=== PATIENT | male | born 1940 | race Caucasian/White ===

== ENCOUNTER → 2016-08-25 | Outpatient (REF) | payer MEDICARE, OTHER ==
[2016-08-25 12:13] LABS: ALBUMIN 3.3 GM/DL (3.2-5.2); ALBUMIN/GLOBULIN RATIO 0.87 (1.00-1.93); ALKALINE PHOSPHATASE 73 U/L (45-117); ALT/SGPT 42 U/L (12-78); ANION GAP 5 MEQ/L (8-16); AST/SGOT 40 U/L (15-37); BILIRUBIN,TOTAL 0.9 MG/DL (0.2-1.0); BLOOD UREA NITROGEN 17 MG/DL (7-18); CALCIUM LEVEL 8.7 MG/DL (8.8-10.2); CARBON DIOXIDE LEVEL 31 MEQ/L (21-32); CHLORIDE LEVEL 108 MEQ/L (98-107); CHOLESTEROL LEVEL 169 MG/DL (<200); CREATININE FOR GFR 0.77 MG/DL (0.70-1.30); GLOMERULAR FILTRATION RATE > 60.0 (>42); GLUCOSE, FASTING 93 MG/DL (83-110); POTASSIUM SERUM 4.6 MEQ/L (3.5-5.1); SODIUM LEVEL 144 MEQ/L (136-145); TOTAL PROTEIN 7.1 GM/DL (6.4-8.2); TRIGLYCERIDES LEVEL 54 MG/DL (<150)
== END ==
LOC: M SFHCCLAY 08:32
PROVIDERS: ATTEND Family Medicine
DX: E78.00 Pure hypercholesterolemia, unspecified (principal); R03.0 Elevated blood-pressure reading, without diagnosis of hypertension; Z85.46 Personal history of malignant neoplasm of prostate

== ENCOUNTER → 2016-09-05 | Outpatient (REF) | payer MEDICARE, OTHER ==
[2016-09-05 17:41] LABS: ALBUMIN 3.2 GM/DL (3.2-5.2); ALBUMIN/GLOBULIN RATIO 0.89 (1.00-1.93); ALKALINE PHOSPHATASE 75 U/L (45-117); ALT/SGPT 70 U/L (12-78); AST/SGOT 55 U/L (15-37); BILIRUBIN,DIRECT 0.2 MG/DL (0.0-0.2); BILIRUBIN,TOTAL 0.6 MG/DL (0.2-1.0); TOTAL PROTEIN 6.8 GM/DL (6.4-8.2)
[2016-09-09 13:39] LABS: ALBUMIN 3.74 GM/DL (3.29-5.55); GAMMA GLOBULIN % 21.5 % (11.1-18.8)
== END ==
LOC: M SFHCCLAY 11:13
PROVIDERS: ATTEND Family Medicine
DX: R79.89 Other specified abnormal findings of blood chemistry (principal); E83.51 Hypocalcemia

== ENCOUNTER → 2016-09-17 | Outpatient (REF) | payer MEDICARE, OTHER | LOC: M SFHCCLAY 09:00 | PROVIDERS: ATTEND Family Medicine | DX: R79.89 Other specified abnormal findings of blood chemistry (principal) ==

== ENCOUNTER → 2016-10-02 | Outpatient (REF) | payer MEDICARE, OTHER ==
[2016-10-02 12:13] LABS: ALBUMIN 3.4 GM/DL (3.2-5.2); ALBUMIN/GLOBULIN RATIO 0.89 (1.00-1.93); BILIRUBIN,DIRECT 0.2 MG/DL (0.0-0.2); BILIRUBIN,TOTAL 0.6 MG/DL (0.2-1.0); TOTAL PROTEIN 7.2 GM/DL (6.4-8.2)
== END ==
LOC: M SFHCCLAY 09:03
PROVIDERS: ATTEND Family Medicine
DX: R79.89 Other specified abnormal findings of blood chemistry (principal); E78.00 Pure hypercholesterolemia, unspecified

== ENCOUNTER → 2016-12-08 | Outpatient (CLI) | payer MEDICARE, OTHER ==
[2016-12-08 08:50] LABS: ANION GAP 9 MEQ/L (8-16); BLOOD UREA NITROGEN 22 MG/DL (7-18); CALCIUM LEVEL 8.9 MG/DL (8.8-10.2); CARBON DIOXIDE LEVEL 30 MEQ/L (21-32); CHLORIDE LEVEL 103 MEQ/L (98-107); CREATININE FOR GFR 0.86 MG/DL (0.70-1.30); GLOMERULAR FILTRATION RATE > 60.0 (>42); GLUCOSE, FASTING 97 MG/DL (83-110); POTASSIUM SERUM 4.4 MEQ/L (3.5-5.1); SODIUM LEVEL 142 MEQ/L (136-145)
--- NOTE | 2016-12-08 09:08 | REP ---
Clinical: Preoperative assessment . Comparison: 08/25/2014 . Technique: PA and lateral. Findings: The mediastinum and cardiac silhouette are normal. The lung tobar demonstrate chronic stable changes without acute consolidation, effusion, or pneumothorax. Airway is patent and midline. The skeletal structures are intact and normal. Impression: 1. No acute cardiopulmonary process. Signed by Diego Torrez MD 12/08/2016 08:16 A
--- NOTE | 2016-12-08 13:46 | ECGEPIP ---
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 Clinical correlation advised; rule out acute myocardial ischemia. Electronically Signed On 12-08-2016 13:46:28 EDT by Tobias Martinez
== END ==
LOC: M LAB 07:17
PROVIDERS: ATTEND Ophthalmology
DX: H25.13 Age-related nuclear cataract, bilateral (principal)

== ENCOUNTER → 2017-08-19 | Outpatient (REF) | payer MEDICARE, OTHER ==
[2017-08-19 12:15] LABS: ALBUMIN 3.5 GM/DL (3.2-5.2); ALBUMIN/GLOBULIN RATIO 0.92 (1.00-1.93); ALKALINE PHOSPHATASE 67 U/L (45-117); ALT/SGPT 30 U/L (12-78); ANION GAP 6 MEQ/L (8-16); AST/SGOT 25 U/L (7-37); BILIRUBIN,TOTAL 0.9 MG/DL (0.2-1.0); BLOOD UREA NITROGEN 16 MG/DL (7-18); CALCIUM LEVEL 9.2 MG/DL (8.8-10.2); CARBON DIOXIDE LEVEL 30 MEQ/L (21-32); CHLORIDE LEVEL 105 MEQ/L (98-107); CHOLESTEROL LEVEL 185 MG/DL (<200); CHOLESTEROL RISK RATIO 3.775 (<5); CREATININE FOR GFR 0.87 MG/DL (0.70-1.30); GLOMERULAR FILTRATION RATE > 60.0 (>42); GLUCOSE, FASTING 88 MG/DL (70-100); HDL CHOLESTEROL 49 MG/DL (>40); LDL CHOLESTEROL 120.2 MG/DL (<100); NON-HDL-C 136 MG/DL; POTASSIUM SERUM 4.2 MEQ/L (3.5-5.1); SODIUM LEVEL 141 MEQ/L (136-145); TOTAL PROTEIN 7.3 GM/DL (6.4-8.2); TRIGLYCERIDES LEVEL 79 MG/DL (<150)
== END ==
LOC: M SFHCCLAY 07:47
DX: E78.00 Pure hypercholesterolemia, unspecified (principal); I10 Essential (primary) hypertension
CPT/HCPCS: 80053

== ENCOUNTER → 2018-08-17 | Outpatient (REF) | payer MEDICARE, OTHER ==
[2018-08-17 16:51] LABS: ALBUMIN 3.5 GM/DL (3.2-5.2); ALT/SGPT 34 U/L (12-78); BILIRUBIN,TOTAL 0.7 MG/DL (0.2-1.0); BLOOD UREA NITROGEN 20 MG/DL (7-18); CARBON DIOXIDE LEVEL 29 MEQ/L (21-32); CHLORIDE LEVEL 107 MEQ/L (98-107); CHOLESTEROL LEVEL 212 MG/DL (<200); CHOLESTEROL RISK RATIO 4.416 (<5); CREATININE FOR GFR 0.88 MG/DL (0.70-1.30); GLOMERULAR FILTRATION RATE > 60.0 (>42); GLUCOSE, FASTING 96 MG/DL (70-100); HDL CHOLESTEROL 48 MG/DL (>40); LDL CHOLESTEROL 147 MG/DL (<100); NON-HDL-C 164 MG/DL; PROSTATIC SPECIFIC AG MONITOR < 0.01 NG/ML (< 4.00); SODIUM LEVEL 141 MEQ/L (136-145); TOTAL PROTEIN 7.3 GM/DL (6.4-8.2); TRIGLYCERIDES LEVEL 85 MG/DL (<150)
[2018-08-17 18:21] LABS: HEMATOCRIT 44.1 % (42.0-52.0); HEMOGLOBIN 15.1 g/dl (13.5-17.5); MEAN CORPUSCULAR HEMOGLOBIN 30.9 pg (27.0-33.0); MEAN CORPUSCULAR HGB CONC 34.2 g/dl (32.0-36.5); MEAN CORPUSCULAR VOLUME 90.2 fl (80.0-96.0); PLATELET COUNT, AUTOMATED 223 10^3/uL (150-450); RED BLOOD COUNT 4.89 10^6/uL (4.30-6.10); WHITE BLOOD COUNT 7.5 10^3/uL (4.0-10.0)
== END ==
LOC: M SFHCCLAY 09:46
PROVIDERS: ATTEND Family Medicine
DX: J45.909 Unspecified asthma, uncomplicated (principal); I10 Essential (primary) hypertension; E78.00 Pure hypercholesterolemia, unspecified; Z85.46 Personal history of malignant neoplasm of prostate

== ENCOUNTER → 2018-09-10 | Outpatient (REF) | payer MEDICARE, OTHER ==
[2018-09-10 17:39] LABS: TOTAL PROTEIN 7.2 GM/DL (6.4-8.2)
[2018-09-10 17:43] LABS: HEMATOCRIT 44.9 % (42.0-52.0); MEAN CORPUSCULAR HGB CONC 33.4 g/dl (32.0-36.5); MEAN CORPUSCULAR VOLUME 92.8 fl (80.0-96.0); PLATELET COUNT, AUTOMATED 228 10^3/uL (150-450); RED BLOOD COUNT 4.84 10^6/uL (4.30-6.10); WHITE BLOOD COUNT 8.3 10^3/uL (4.0-10.0)
[2018-09-10 18:54] LABS: ERYTHROCYTE SEDIMENTATION RATE 5 mm/hr (0-20)
[2018-09-14 12:41] LABS: ALBUMIN 4.08 GM/DL (3.29-5.55); ALBUMIN % 56.7 % (55.8-66.1); ALPHA-1-GLOBULIN % 3.7 % (2.9-4.9); ALPHA-1-GLOBULINS 0.27 GM/DL (0.17-0.41); ALPHA-2-GLOBULINS 0.61 GM/DL (0.42-0.99); ALPHA-2-GLOBULINS % 8.5 % (7.1-11.8); BETA-1-GLOBULINS 0.48 GM/DL (0.28-0.60); BETA-1-GLOBULINS % 6.7 % (4.7-7.2); BETA-2-GLOBULINS 0.42 GM/DL (0.19-0.55); BETA-2-GLOBULINS % 5.9 % (3.2-6.5); GAMMA GLOBULIN % 18.5 % (11.1-18.8); GAMMA GLOBULINS 1.33 GM/DL (0.65-1.58)
[2018-09-14 14:11] LABS: IMMUNOTYPING SERUM IGG ABNORMAL (NORMAL); IMMUNOTYPING SERUM KAPPA ABNORMAL (NORMAL); IMMUNOTYPING SERUM LAMBDA ABNORMAL (NORMAL)
== END ==
LOC: M SFHCCLAY 12:03
PROVIDERS: ATTEND Family Medicine
DX: D89.2 Hypergammaglobulinemia, unspecified (principal)

== ENCOUNTER → 2019-10-19 | Outpatient (REF) | payer MEDICARE, OTHER ==
[~2019-10-19] MED LIST: BIMA01SOL OS; FISH1000 PO; LUTE20TA PO; OMEP1CAP73 PO; VITA100066 PO
[2019-10-19 11:26] LABS: BASO # 0.1 10^3/uL (0.0-0.2); BASO % 0.6 % (0.0-1.0); EOS # 0.2 10^3/uL (0.0-0.5); EOS % 2.8 % (0.0-3.0); HEMATOCRIT 45.8 % (42.0-52.0); HEMOGLOBIN 15.6 g/dl (13.5-17.5); LYMPH # 3.1 10^3/uL (1.5-5.0); LYMPH % 40.4 % (24.0-44.0); MEAN CORPUSCULAR HEMOGLOBIN 31.7 pg (27.0-33.0); MEAN CORPUSCULAR HGB CONC 34.1 g/dl (32.0-36.5); MEAN CORPUSCULAR VOLUME 93.1 fl (80.0-96.0); MONO # 0.9 10^3/uL (0.0-0.8); NEUTROPHILS # 3.5 10^3/uL (1.5-8.5); NEUTROPHILS % 45.1 % (36.0-66.0); PLATELET COUNT, AUTOMATED 219 10^3/uL (150-450); RED BLOOD COUNT 4.92 10^6/uL (4.30-6.10); WHITE BLOOD COUNT 7.7 10^3/uL (4.0-10.0)
[2019-10-19 11:34] LABS: ALBUMIN 3.4 GM/DL (3.2-5.2); ALT/SGPT 25 U/L (12-78); BLOOD UREA NITROGEN 21 MG/DL (7-18); CALCIUM LEVEL 9.1 MG/DL (8.8-10.2); CARBON DIOXIDE LEVEL 31 MEQ/L (21-32); CHLORIDE LEVEL 107 MEQ/L (98-107); CHOLESTEROL LEVEL 188 MG/DL (<200); CHOLESTEROL RISK RATIO 4.372 (<5); GLOMERULAR FILTRATION RATE > 60.0 (>35); GLUCOSE, FASTING 96 MG/DL (70-100); HDL CHOLESTEROL 43 MG/DL (>40); LDH LACTATE DEHYDROGENASE 165 U/L (87-241); LDL CHOLESTEROL 123 MG/DL (<100); NON-HDL-C 145 MG/DL; POTASSIUM SERUM 4.9 MEQ/L (3.5-5.1); SODIUM LEVEL 141 MEQ/L (136-145); TOTAL PROTEIN 7.3 GM/DL (6.4-8.2); TRIGLYCERIDES LEVEL 109 MG/DL (<150)
[2019-10-20 07:53] LABS: ALBUMIN % 55.4 % (55.8-66.1); ALPHA-1-GLOBULIN % 3.7 % (2.9-4.9); ALPHA-2-GLOBULINS % 8.8 % (7.1-11.8); BETA-1-GLOBULINS % 6.7 % (4.7-7.2); BETA-2-GLOBULINS % 6.1 % (3.2-6.5); GAMMA GLOBULIN % 19.3 % (11.1-18.8)
[2019-10-20 07:54] LABS: ALBUMIN 4.04 GM/DL (3.29-5.55); ALPHA-1-GLOBULINS 0.27 GM/DL (0.17-0.41); ALPHA-2-GLOBULINS 0.64 GM/DL (0.42-0.99); BETA-1-GLOBULINS 0.49 GM/DL (0.28-0.60); BETA-2-GLOBULINS 0.45 GM/DL (0.19-0.55); GAMMA GLOBULINS 1.41 GM/DL (0.65-1.58)
== END ==
LOC: M SFHCCLAY 07:35
PROVIDERS: ATTEND Family Medicine
DX: J45.909 Unspecified asthma, uncomplicated (principal); K22.2 Esophageal obstruction; D47.2 Monoclonal gammopathy; I10 Essential (primary) hypertension

== ENCOUNTER → 2020-08-14 | Outpatient (CLI) | payer MEDICARE, OTHER ==
--- NOTE | 2020-08-14 15:21 | REP ---
INDICATION: COUGH. COMPARISON: Comparison chest x-ray December 08, 2016. TECHNIQUE: Two views.. FINDINGS: The lungs are hyperinflated and free of infiltrate. Pleural angles are sharp. There is mild linear fibrosis in the right base. Heart is not felt to be enlarged. The thoracic aorta is somewhat tortuous. No acute bony abnormality is seen. There are 2 metallic orthopedic anchors in the right humeral head again noted. IMPRESSION: No active disease. Mild hyperinflation.. <Electronically signed by Rogelio Bae > 08/14/20 [id number]
== END ==
LOC: M CLY 14:53
PROVIDERS: ATTEND Physician Assistant
DX: R06.02 Shortness of breath (principal); R05 Cough; Z20.822 Contact with and (suspected) exposure to COVID-19
CPT/HCPCS: 71046; G0463; U0003

== ENCOUNTER → 2020-08-14 | Outpatient (REF) | payer MEDICARE, OTHER | LOC: M SFHCCLAY 14:40 | PROVIDERS: ATTEND Physician Assistant | DX: R06.02 Shortness of breath (principal); Z11.52 Encounter for screening for COVID-19 ==

== ENCOUNTER → 2020-08-17 | Outpatient (REF) | payer MEDICARE, OTHER ==
[2020-08-17 16:00] LABS: BASO % 0.4 % (0.0-1.0); EOS # 0.1 10^3/uL (0.0-0.5); HEMATOCRIT 45.6 % (42.0-52.0); HEMOGLOBIN 15.2 g/dl (13.5-17.5); LYMPH # 1.6 10^3/uL (1.5-5.0); LYMPH % 23.2 % (24.0-44.0); MEAN CORPUSCULAR HEMOGLOBIN 30.9 pg (27.0-33.0); MEAN CORPUSCULAR HGB CONC 33.3 g/dl (32.0-36.5); MEAN CORPUSCULAR VOLUME 92.7 fl (80.0-96.0); MONO # 0.5 10^3/uL (0.0-0.8); MONO % 7.4 % (0.0-5.0); NEUTROPHILS # 4.6 10^3/uL (1.5-8.5); NEUTROPHILS % 67.7 % (36.0-66.0); PLATELET COUNT, AUTOMATED 189 10^3/uL (150-450); RED BLOOD COUNT 4.92 10^6/uL (4.30-6.10); WHITE BLOOD COUNT 6.8 10^3/uL (4.0-10.0)
[2020-08-17 16:27] LABS: ALBUMIN 3.6 GM/DL (3.2-5.2); ALT/SGPT 27 U/L (12-78); BILIRUBIN,TOTAL 0.7 MG/DL (0.2-1.0); BLOOD UREA NITROGEN 23 MG/DL (7-18); CALCIUM LEVEL 9.6 MG/DL (8.8-10.2); CARBON DIOXIDE LEVEL 29 MEQ/L (21-32); CHLORIDE LEVEL 106 MEQ/L (98-107); CHOLESTEROL LEVEL 209 MG/DL (<200); CREATININE FOR GFR 0.85 MG/DL (0.70-1.30); GLOMERULAR FILTRATION RATE > 60.0 (>35); GLUCOSE, FASTING 96 MG/DL (70-100); HDL CHOLESTEROL 50 MG/DL (>40); LDL CHOLESTEROL 143 MG/DL (<100); NON-HDL-C 159 MG/DL; POTASSIUM SERUM 4.8 MEQ/L (3.5-5.1); SODIUM LEVEL 141 MEQ/L (136-145); TOTAL PROTEIN 7.6 GM/DL (6.4-8.2); TRIGLYCERIDES LEVEL 81 MG/DL (<150)
[2020-08-17 16:29] LABS: ERYTHROCYTE SEDIMENTATION RATE 7 mm/hr (0-20)
[2020-08-22 12:15] LABS: ALBUMIN 4.14 GM/DL (3.29-5.55); ALBUMIN % 54.5 % (55.8-66.1); ALPHA-1-GLOBULIN % 3.9 % (2.9-4.9); ALPHA-2-GLOBULINS 0.69 GM/DL (0.42-0.99); ALPHA-2-GLOBULINS % 9.1 % (7.1-11.8); BETA-1-GLOBULINS 0.49 GM/DL (0.28-0.60); BETA-1-GLOBULINS % 6.5 % (4.7-7.2); BETA-2-GLOBULINS 0.46 GM/DL (0.19-0.55); BETA-2-GLOBULINS % 6.1 % (3.2-6.5); GAMMA GLOBULIN % 19.9 % (11.1-18.8); GAMMA GLOBULINS 1.51 GM/DL (0.65-1.58)
[2020-08-22 12:53] LABS: IMMUNOTYPING SERUM IGG ABNORMAL (NORMAL); IMMUNOTYPING SERUM KAPPA ABNORMAL (NORMAL)
== END ==
LOC: M SFHCCLAY 09:56
PROVIDERS: ATTEND Family Medicine
DX: D47.2 Monoclonal gammopathy (principal); I10 Essential (primary) hypertension; E78.00 Pure hypercholesterolemia, unspecified; J45.20 Mild intermittent asthma, uncomplicated

== ENCOUNTER → 2020-08-23 | Outpatient (REF) | payer MEDICARE, OTHER | LOC: M SFHCDERM 14:13 | PROVIDERS: ATTEND Dermatology | DX: L60.3 Nail dystrophy (principal) ==

== ENCOUNTER → 2020-08-23 | Outpatient (CLI) | payer MEDICARE, OTHER | LOC: M LAB 14:34 | PROVIDERS: ATTEND Dermatology | DX: L60.3 Nail dystrophy (principal); D18.01 Hemangioma of skin and subcutaneous tissue | CPT/HCPCS: 17000; 17003; 36415; 82728; G0463 ==

== ENCOUNTER → 2020-08-29 | Outpatient (REF) | payer MEDICARE, OTHER ==
[2020-08-29 16:27] LABS: PERCENT SATURATION 38.6 % (19.7-50.0)
[2020-08-31 19:06] LABS: FREE KAPPA LIGHT CHAINS SERUM 45.3 mg/L (3.3-19.4); FREE LAMBDA LIGHT CHAINS SERUM 18.2 mg/L (5.7-26.3); KAPPA/LAMBDA RATIO SERUM 2.49 (0.26-1.65)
== END ==
LOC: M SFHCCLAY 11:51
PROVIDERS: ATTEND Family Medicine
DX: L60.3 Nail dystrophy (principal); D50.9 Iron deficiency anemia, unspecified

== ENCOUNTER → 2020-10-16 | Outpatient (REF) | payer MEDICARE, OTHER | LOC: M LAB REF 18:48 | PROVIDERS: ATTEND Dermatology | DX: D23.39 Other benign neoplasm of skin of other parts of face (principal) ==

== ENCOUNTER → 2021-08-23 | Outpatient (REF) | payer MEDICARE, OTHER ==
[2021-08-23 15:56] LABS: BASO % 0.5 % (0.0-1.0); EOS # 0.1 10^3/uL (0.0-0.5); EOS % 0.7 % (0.0-3.0); HEMATOCRIT 44.8 % (42.0-52.0); HEMOGLOBIN 15.1 g/dl (13.5-17.5); LYMPH # 1.8 10^3/uL (1.5-5.0); LYMPH % 21.9 % (24.0-44.0); MEAN CORPUSCULAR HEMOGLOBIN 31.1 pg (27.0-33.0); MEAN CORPUSCULAR HGB CONC 33.7 g/dl (32.0-36.5); MEAN CORPUSCULAR VOLUME 92.2 fl (80.0-96.0); MONO # 0.6 10^3/uL (0.0-0.8); MONO % 7.5 % (2.0-8.0); NEUTROPHILS # 5.7 10^3/uL (1.5-8.5); NEUTROPHILS % 69.3 % (36.0-66.0); PLATELET COUNT, AUTOMATED 207 10^3/uL (150-450); RED BLOOD COUNT 4.86 10^6/uL (4.30-6.10); WHITE BLOOD COUNT 8.2 10^3/uL (4.0-10.0)
[2021-08-23 16:32] LABS: ALBUMIN 3.6 GM/DL (3.2-5.2); ALT/SGPT 28 U/L (12-78); BILIRUBIN,TOTAL 0.8 MG/DL (0.2-1.0); BLOOD UREA NITROGEN 20 MG/DL (7-18); CALCIUM LEVEL 9.1 MG/DL (8.8-10.2); CARBON DIOXIDE LEVEL 29 MEQ/L (21-32); CHLORIDE LEVEL 108 MEQ/L (98-107); CHOLESTEROL LEVEL 171 MG/DL (<200); CHOLESTEROL RISK RATIO 3.717 (<5); CREATININE FOR GFR 0.87 MG/DL (0.70-1.30); GLOMERULAR FILTRATION RATE > 60.0 (>35); GLUCOSE, FASTING 92 MG/DL (70-100); HDL CHOLESTEROL 46 MG/DL (>40); LDL CHOLESTEROL 106 MG/DL (<100); NON-HDL-C 125 MG/DL; POTASSIUM SERUM 4.6 MEQ/L (3.5-5.1); SODIUM LEVEL 140 MEQ/L (136-145); TOTAL PROTEIN 7.2 GM/DL (6.4-8.2); TRIGLYCERIDES LEVEL 96 MG/DL (<150)
[2021-08-27 10:55] LABS: ALBUMIN 3.97 GM/DL (3.29-5.55); ALBUMIN % 55.2 % (55.8-66.1); ALPHA-1-GLOBULIN % 4.1 % (2.9-4.9); ALPHA-2-GLOBULINS 0.66 GM/DL (0.42-0.99); ALPHA-2-GLOBULINS % 9.1 % (7.1-11.8)
[2021-08-27 10:56] LABS: BETA-1-GLOBULINS 0.46 GM/DL (0.28-0.60); BETA-1-GLOBULINS % 6.4 % (4.7-7.2); BETA-2-GLOBULINS 0.44 GM/DL (0.19-0.55); BETA-2-GLOBULINS % 6.1 % (3.2-6.5); GAMMA GLOBULIN % 19.1 % (11.1-18.8); GAMMA GLOBULINS 1.38 GM/DL (0.65-1.58)
[2021-08-27 11:40] LABS: IMMUNOTYPING SERUM IGG ABNORMAL (NORMAL); IMMUNOTYPING SERUM KAPPA ABNORMAL (NORMAL)
== END ==
LOC: M SFHCCLAY 11:26
PROVIDERS: ATTEND Family Medicine
DX: E78.00 Pure hypercholesterolemia, unspecified (principal); D47.2 Monoclonal gammopathy; R03.0 Elevated blood-pressure reading, without diagnosis of hypertension

== ENCOUNTER → 2021-09-05 | Outpatient (REF) | payer MEDICARE, OTHER ==
[2021-09-07 17:06] LABS: FREE KAPPA LIGHT CHAINS SERUM 43.6 mg/L (3.3-19.4); FREE LAMBDA LIGHT CHAINS SERUM 17.1 mg/L (5.7-26.3); KAPPA/LAMBDA RATIO SERUM 2.55 (0.26-1.65)
== END ==
LOC: M SFHCCLAY 10:31
PROVIDERS: ATTEND Family Medicine
DX: D47.2 Monoclonal gammopathy (principal)

== ENCOUNTER → 2022-08-28 | Outpatient (REF) | payer MEDICARE, OTHER ==
[2022-08-28 17:31] LABS: BASO % 0.7 % (0.0-1.0); EOS # 0.1 10^3/uL (0.0-0.5); EOS % 2.2 % (0.0-3.0); HEMATOCRIT 43.4 % (42.0-52.0); HEMOGLOBIN 14.7 g/dl (13.5-17.5); LYMPH % 18.4 % (24.0-44.0); MEAN CORPUSCULAR HEMOGLOBIN 31.2 pg (27.0-33.0); MEAN CORPUSCULAR HGB CONC 33.9 g/dl (32.0-36.5); MEAN CORPUSCULAR VOLUME 92.1 fl (80.0-96.0); MONO # 0.7 10^3/uL (0.0-0.8); MONO % 11.9 % (2.0-8.0); NEUTROPHILS # 3.7 10^3/uL (1.5-8.5); NEUTROPHILS % 66.6 % (36.0-66.0); PLATELET COUNT, AUTOMATED 196 10^3/uL (150-450); RED BLOOD COUNT 4.71 10^6/uL (4.30-6.10); WHITE BLOOD COUNT 5.6 10^3/uL (4.0-10.0)
[2022-08-28 18:08] LABS: ALBUMIN 3.6 G/DL (3.2-5.2); ALKALINE PHOSPHATASE 78 U/L (46-116); ALT/SGPT 22 U/L (7.0-40); AST/SGOT 28 U/L (<34); BILIRUBIN,TOTAL 1.1 MG/DL (0.3-1.2); BLOOD UREA NITROGEN 21 MG/DL (9-23); CALCIUM LEVEL 8.9 MG/DL (8.3-10.6); CARBON DIOXIDE LEVEL 28 MMOL/L (20-31); CHLORIDE LEVEL 102 MMOL/L (98-107); CHOLESTEROL LEVEL 173 MG/DL (<200); CHOLESTEROL RISK RATIO 4.65 (<5); CREATININE FOR GFR 0.82 MG/DL (0.70-1.30); GLOMERULAR FILTRATION RATE > 60.0 (>35); GLUCOSE, FASTING 95 MG/DL (74-106); HDL CHOLESTEROL 37.2 MG/DL (>40); LDL CHOLESTEROL 113.8 MG/DL (<100); NON-HDL-C 136 MG/DL; POTASSIUM SERUM 4.4 MMOL/L (3.5-5.1); PROSTATIC SPECIFIC AG MONITOR 0.04 NG/ML (< 4.00); SODIUM LEVEL 139 MMOL/L (136-145); TOTAL PROTEIN 7.1 G/DL (5.7-8.2); TRIGLYCERIDES LEVEL 110 MG/DL (<150)
== END ==
LOC: M SFHCCLAY 11:27
PROVIDERS: ATTEND Family Medicine
DX: D47.2 Monoclonal gammopathy (principal); R79.89 Other specified abnormal findings of blood chemistry; E78.00 Pure hypercholesterolemia, unspecified; R03.0 Elevated blood-pressure reading, without diagnosis of hypertension; Z85.46 Personal history of malignant neoplasm of prostate; Z00.00 Encounter for general adult medical examination without abnormal findings; I10 Essential (primary) hypertension; K21.9 Gastro-esophageal reflux disease without esophagitis; E83.51 Hypocalcemia

== ENCOUNTER → 2022-09-22 | Outpatient (CLI) | payer MEDICARE, OTHER ==
[~2022-09-22] MED LIST changes: +PROA1AER2 INH; +VALS1TAB66 PO; +[UNRECOGNIZED DRUG - CODE] PO
== END ==
LOC: M RAD 10:25
PROVIDERS: ATTEND Internal Medicine Medical Oncology
DX: D47.2 Monoclonal gammopathy (principal)

== ENCOUNTER → 2023-03-17 | Outpatient (REF) | payer MEDICARE, OTHER ==
[2023-03-17 15:08] LABS: BASO % 0.7 % (0.0-1.0); EOS # 0.2 10^3/uL (0.0-0.5); EOS % 3.9 % (0.0-3.0); HEMATOCRIT 44.7 % (42.0-52.0); HEMOGLOBIN 15.1 g/dl (13.5-17.5); LYMPH # 1.8 10^3/uL (1.5-5.0); LYMPH % 31.1 % (24.0-44.0); MEAN CORPUSCULAR HEMOGLOBIN 31.3 pg (27.0-33.0); MEAN CORPUSCULAR HGB CONC 33.8 g/dl (32.0-36.5); MEAN CORPUSCULAR VOLUME 92.5 fl (80.0-96.0); MONO # 0.7 10^3/uL (0.0-0.8); MONO % 11.4 % (2.0-8.0); NEUTROPHILS # 3.1 10^3/uL (1.5-8.5); NEUTROPHILS % 52.7 % (36.0-66.0); PLATELET COUNT, AUTOMATED 209 10^3/uL (150-450); RED BLOOD COUNT 4.83 10^6/uL (4.30-6.10); WHITE BLOOD COUNT 5.9 10^3/uL (4.0-10.0)
[2023-03-17 15:09] LABS: ALBUMIN 3.4 G/DL (3.2-5.2); ALKALINE PHOSPHATASE 61 U/L (46-116); ALT/SGPT 20 U/L (7.0-40); AST/SGOT 18 U/L (<34); BILIRUBIN,TOTAL 0.7 MG/DL (0.3-1.2); BLOOD UREA NITROGEN 25 MG/DL (9-23); CALCIUM LEVEL 9.1 MG/DL (8.3-10.6); CARBON DIOXIDE LEVEL 28 MMOL/L (20-31); CHLORIDE LEVEL 108 MMOL/L (98-107); CREATININE FOR GFR 0.84 MG/DL (0.70-1.30); GLOMERULAR FILTRATION RATE > 60.0 (>35); GLUCOSE, FASTING 98 MG/DL (74-106); POTASSIUM SERUM 4.4 MMOL/L (3.5-5.1); SODIUM LEVEL 140 MMOL/L (136-145); TOTAL PROTEIN 6.9 G/DL (5.7-8.2)
[2023-03-17 15:10] LABS: IMMUNOGLOBULIN A 320.8 MG/DL (40-350); IMMUNOGLOBULIN G 1635 MG/DL (650-1600); IMMUNOGLOBULIN M 61.3 MG/DL (50-300)
[2023-03-19 18:08] LABS: FREE KAPPA LIGHT CHAINS SERUM 55.2 mg/L (3.3-19.4); FREE LAMBDA LIGHT CHAINS SERUM 16.1 mg/L (5.7-26.3); KAPPA/LAMBDA RATIO SERUM 3.43 (0.26-1.65)
== END ==
LOC: M LABDRAWC 11:52
PROVIDERS: ATTEND Internal Medicine Hematology & Oncology
DX: D47.2 Monoclonal gammopathy (principal); Z85.46 Personal history of malignant neoplasm of prostate

== ENCOUNTER → 2023-03-17 | Outpatient (REF) | payer MEDICARE, OTHER | LOC: M SFHCCLAY 12:09 | PROVIDERS: ATTEND Family Medicine | DX: Z85.46 Personal history of malignant neoplasm of prostate (principal) ==

== ENCOUNTER → 2023-08-31 | Outpatient (CLI) | payer MEDICARE, OTHER | LOC: M PLAIMG 07:35 | PROVIDERS: ATTEND Physician Assistant | DX: I10 Essential (primary) hypertension (principal); N13.30 Unspecified hydronephrosis ==

== ENCOUNTER → 2023-09-10 | Outpatient (REF) | payer MEDICARE, OTHER ==
[~2023-09-10] MED LIST changes: +VALS1TAB67 PO
[2023-09-10 11:56] LABS: APPEARANCE, URINE CLEAR (CLEAR); BACTERIA, URINE AUTO NEGATIVE (NEGATIVE); BILIRUBIN, URINE AUTO NEGATIVE (NEGATIVE); BLOOD, URINE BLOOD NEGATIVE (NEGATIVE); COLOR, URINE YELLOW (YELLOW); GLUCOSE, URINE (UA) AUTO NEGATIVE (NEGATIVE); KETONE, URINE AUTO NEGATIVE (NEGATIVE); LEUKOCYTE ESTERASE, URINE AUTO NEGATIVE (NEGATIVE); MUCUS, URINE SMALL (NEGATIVE); NITRITE, URINE AUTO NEGATIVE (NEGATIVE); PROTEIN, URINE AUTO NEGATIVE (NEGATIVE); RBC, URINE AUTO 1 /HPF (0-3); SPECIFIC GRAVITY URINE AUTO 1.019 (1.002-1.035); SQUAMOUS EPITHELIAL CELL UR AU 0 /HPF (0-6); UROBILINOGEN, URINE AUTO 0.2 mg/dL (0.0-2.0); WBC, URINE AUTO 0 /HPF (0-3)
[2023-09-10 12:12] LABS: BASO % 0.6 % (0.0-1.0); EOS # 0.1 10^3/uL (0.0-0.5); EOS % 2.2 % (0.0-3.0); HEMATOCRIT 44.6 % (42.0-52.0); HEMOGLOBIN 15.4 g/dl (13.5-17.5); LYMPH # 1.4 10^3/uL (1.5-5.0); LYMPH % 27.7 % (24.0-44.0); MEAN CORPUSCULAR HEMOGLOBIN 31.8 pg (27.0-33.0); MEAN CORPUSCULAR HGB CONC 34.5 g/dl (32.0-36.5); MEAN CORPUSCULAR VOLUME 92.1 fl (80.0-96.0); MONO # 0.4 10^3/uL (0.0-0.8); MONO % 8.4 % (2.0-8.0); NEUTROPHILS # 3.1 10^3/uL (1.5-8.5); NEUTROPHILS % 60.9 % (36.0-66.0); PLATELET COUNT, AUTOMATED 218 10^3/uL (150-450); RED BLOOD COUNT 4.84 10^6/uL (4.30-6.10)
[2023-09-10 12:29] LABS: PROSTATIC SPECIFIC AG MONITOR 0.04 NG/ML (< 4.00)
[2023-09-10 12:32] LABS: ALBUMIN 3.4 G/DL (3.2-5.2); ALKALINE PHOSPHATASE 63 U/L (46-116); ALT/SGPT 24 U/L (7.0-40); AST/SGOT 22 U/L (<34); BLOOD UREA NITROGEN 23 MG/DL (9-23); CALCIUM LEVEL 8.9 MG/DL (8.3-10.6); CARBON DIOXIDE LEVEL 30 MMOL/L (20-31); CHLORIDE LEVEL 109 MMOL/L (98-107); CHOLESTEROL LEVEL 175 MG/DL (<200); CHOLESTEROL RISK RATIO 4.31 (<5); CREATININE FOR GFR 0.77 MG/DL (0.70-1.30); GLOMERULAR FILTRATION RATE > 60.0 (>35); GLUCOSE, FASTING 103 MG/DL (74-106); HDL CHOLESTEROL 40.6 MG/DL (>40); NON-HDL-C 134.4 MG/DL; POTASSIUM SERUM 4.4 MMOL/L (3.5-5.1); SODIUM LEVEL 140 MMOL/L (136-145); TOTAL PROTEIN 6.8 G/DL (5.7-8.2); TRIGLYCERIDES LEVEL 117 MG/DL (<150)
[2023-09-14 16:11] LABS: FREE KAPPA LIGHT CHAINS SERUM 56.3 mg/L (3.3-19.4); FREE LAMBDA LIGHT CHAINS SERUM 17.5 mg/L (5.7-26.3); KAPPA/LAMBDA RATIO SERUM 3.22 (0.26-1.65)
== END ==
LOC: M SFHCCLAY 09:05
PROVIDERS: ATTEND Family Medicine
DX: Z00.00 Encounter for general adult medical examination without abnormal findings (principal); D47.2 Monoclonal gammopathy; E78.00 Pure hypercholesterolemia, unspecified; N20.0 Calculus of kidney; R03.0 Elevated blood-pressure reading, without diagnosis of hypertension; Z85.46 Personal history of malignant neoplasm of prostate

== ENCOUNTER → 2023-09-10 | Outpatient (REF) | payer MEDICARE, OTHER ==
[~2023-09-10] MED LIST changes: -VALS1TAB67 PO
[2023-09-10 12:20] LABS: BASO % 0.6 % (0.0-1.0); EOS # 0.1 10^3/uL (0.0-0.5); EOS % 2.2 % (0.0-3.0); HEMATOCRIT 44.6 % (42.0-52.0); HEMOGLOBIN 15.4 g/dl (13.5-17.5); LYMPH # 1.4 10^3/uL (1.5-5.0); LYMPH % 27.7 % (24.0-44.0); MEAN CORPUSCULAR HEMOGLOBIN 31.8 pg (27.0-33.0); MEAN CORPUSCULAR HGB CONC 34.5 g/dl (32.0-36.5); MEAN CORPUSCULAR VOLUME 92.1 fl (80.0-96.0); MONO # 0.4 10^3/uL (0.0-0.8); MONO % 8.4 % (2.0-8.0); NEUTROPHILS # 3.1 10^3/uL (1.5-8.5); NEUTROPHILS % 60.9 % (36.0-66.0); PLATELET COUNT, AUTOMATED 218 10^3/uL (150-450); RED BLOOD COUNT 4.84 10^6/uL (4.30-6.10)
[2023-09-10 12:28] LABS: PROSTATIC SPECIFIC AG MONITOR 0.04 NG/ML (< 4.00)
[2023-09-10 12:31] LABS: ALBUMIN 3.4 G/DL (3.2-5.2); ALKALINE PHOSPHATASE 63 U/L (46-116); ALT/SGPT 24 U/L (7.0-40); AST/SGOT 21 U/L (<34); BLOOD UREA NITROGEN 23 MG/DL (9-23); CALCIUM LEVEL 8.8 MG/DL (8.3-10.6); CARBON DIOXIDE LEVEL 30 MMOL/L (20-31); CHLORIDE LEVEL 107 MMOL/L (98-107); CREATININE FOR GFR 0.78 MG/DL (0.70-1.30); GLOMERULAR FILTRATION RATE > 60.0 (>35); GLUCOSE, FASTING 104 MG/DL (74-106); IMMUNOGLOBULIN A 306.9 MG/DL (40-350); IMMUNOGLOBULIN G 1647 MG/DL (650-1600); POTASSIUM SERUM 4.3 MMOL/L (3.5-5.1); SODIUM LEVEL 140 MMOL/L (136-145); TOTAL PROTEIN 6.9 G/DL (5.7-8.2)
== END ==
LOC: M LABDRAWC 11:07
PROVIDERS: ATTEND Internal Medicine Hematology & Oncology
DX: D47.2 Monoclonal gammopathy (principal)

== ENCOUNTER → 2024-02-09 | Outpatient (CLI) | payer MEDICARE, OTHER ==
[~2024-02-09] MED LIST changes: +VALS1TAB67 PO
== END ==
LOC: M SOG 07:56
PROVIDERS: ATTEND Orthopaedic Surgery
DX: M54.50 Low back pain, unspecified (principal); M85.88 Other specified disorders of bone density and structure, other site

== ENCOUNTER → 2024-02-18 | Outpatient (CLI) | payer MEDICARE, OTHER ==
[2024-02-18 12:25] LABS: BASO % 0.5 % (0.0-1.0); EOS # 0.1 10^3/uL (0.0-0.5); EOS % 0.7 % (0.0-3.0); HEMATOCRIT 42.3 % (42.0-52.0); HEMOGLOBIN 14.4 g/dl (13.5-17.5); LYMPH # 1.2 10^3/uL (1.5-5.0); LYMPH % 14.5 % (24.0-44.0); MEAN CORPUSCULAR HEMOGLOBIN 31.3 pg (27.0-33.0); MONO # 0.6 10^3/uL (0.0-0.8); MONO % 7.3 % (2.0-8.0); NEUTROPHILS # 6.4 10^3/uL (1.5-8.5); NEUTROPHILS % 76.5 % (36.0-66.0); PLATELET COUNT, AUTOMATED 182 10^3/uL (150-450); WHITE BLOOD COUNT 8.3 10^3/uL (4.0-10.0)
[2024-02-18 12:56] LABS: BLOOD UREA NITROGEN 24 MG/DL (9-23); CALCIUM LEVEL 9.1 MG/DL (8.3-10.6); CARBON DIOXIDE LEVEL 29 MMOL/L (20-31); CHLORIDE LEVEL 108 MMOL/L (98-107); CREATININE FOR GFR 0.84 MG/DL (0.70-1.30); GLOMERULAR FILTRATION RATE > 60.0 (>35); GLUCOSE, FASTING 84 MG/DL (74-106); POTASSIUM SERUM 4.5 MMOL/L (3.5-5.1); SODIUM LEVEL 141 MMOL/L (136-145)
== END ==
LOC: M LAB 11:35
PROVIDERS: ATTEND Internal Medicine Cardiovascular Disease
DX: I48.0 Paroxysmal atrial fibrillation (principal); I44.4 Left anterior fascicular block; I10 Essential (primary) hypertension; I35.1 Nonrheumatic aortic (valve) insufficiency

== ENCOUNTER → 2024-02-19 | Outpatient (CLI) | payer MEDICARE, OTHER | LOC: M PLARAD 14:41 | PROVIDERS: ATTEND Orthopaedic Surgery | DX: M47.816 Spondylosis without myelopathy or radiculopathy, lumbar region (principal) ==

== ENCOUNTER → 2024-03-25 | Outpatient (REF) | payer MEDICARE, OTHER ==
[2024-03-25 11:46] LABS: ALBUMIN 3.5 G/DL (3.2-5.2); BILIRUBIN,DIRECT 0.3 MG/DL (<0.4); BILIRUBIN,TOTAL 0.8 MG/DL (0.3-1.2); CHOLESTEROL RISK RATIO 2.77 (<5); HDL CHOLESTEROL 37.5 MG/DL (>40); LDL CHOLESTEROL 52.5 MG/DL (<100); NON-HDL-C 66.5 MG/DL; TOTAL PROTEIN 7.2 G/DL (5.7-8.2)
== END ==
LOC: M LABDRAWC 10:48
PROVIDERS: ATTEND Internal Medicine Cardiovascular Disease
DX: I10 Essential (primary) hypertension (principal); E78.2 Mixed hyperlipidemia; I44.4 Left anterior fascicular block

== ENCOUNTER → 2024-03-25 | Outpatient (REF) | payer MEDICARE, OTHER ==
[2024-03-25 11:43] LABS: ALBUMIN 3.5 G/DL (3.2-5.2); ALKALINE PHOSPHATASE 69 U/L (46-116); ALT/SGPT 24 U/L (7.0-40); AST/SGOT 20 U/L (<34); BILIRUBIN,TOTAL 0.8 MG/DL (0.3-1.2); BLOOD UREA NITROGEN 23 MG/DL (9-23); CALCIUM LEVEL 9.3 MG/DL (8.3-10.6); CARBON DIOXIDE LEVEL 24 MMOL/L (20-31); CHLORIDE LEVEL 111 MMOL/L (98-107); CREATININE FOR GFR 0.77 MG/DL (0.70-1.30); GLOMERULAR FILTRATION RATE > 60.0 (>35); GLUCOSE, FASTING 89 MG/DL (74-106); POTASSIUM SERUM 4.1 MMOL/L (3.5-5.1); SODIUM LEVEL 141 MMOL/L (136-145); TOTAL PROTEIN 7.2 G/DL (5.7-8.2)
[2024-03-25 11:44] LABS: BASO % 0.6 % (0.0-1.0); EOS # 0.2 10^3/uL (0.0-0.5); EOS % 3.4 % (0.0-3.0); HEMATOCRIT 42.4 % (42.0-52.0); HEMOGLOBIN 14.6 g/dl (13.5-17.5); LYMPH # 1.9 10^3/uL (1.5-5.0); MEAN CORPUSCULAR HEMOGLOBIN 31.3 pg (27.0-33.0); MEAN CORPUSCULAR HGB CONC 34.4 g/dl (32.0-36.5); MONO # 0.8 10^3/uL (0.0-0.8); NEUTROPHILS # 4.1 10^3/uL (1.5-8.5); NEUTROPHILS % 57.7 % (36.0-66.0); PLATELET COUNT, AUTOMATED 195 10^3/uL (150-450); RED BLOOD COUNT 4.66 10^6/uL (4.30-6.10)
[2024-03-25 11:52] LABS: ERYTHROCYTE SEDIMENTATION RATE 10 mm/hr (0-20)
[2024-03-28 14:56] LABS: FREE KAPPA LIGHT CHAINS SERUM 59.5 mg/L (3.3-19.4); FREE LAMBDA LIGHT CHAINS SERUM 17.3 mg/L (5.7-26.3); KAPPA/LAMBDA RATIO SERUM 3.44 (0.26-1.65)
== END ==
LOC: M SFHCCLAY 07:37
PROVIDERS: ATTEND Family Medicine
DX: I10 Essential (primary) hypertension (principal); D47.2 Monoclonal gammopathy; E78.2 Mixed hyperlipidemia; I44.4 Left anterior fascicular block

== ENCOUNTER → 2024-06-15 | Outpatient (REF) | payer MEDICARE, OTHER ==
[2024-06-15 12:23] LABS: ALBUMIN 3.4 G/DL (3.2-5.2); BILIRUBIN,DIRECT 0.4 MG/DL (<0.4); CHOLESTEROL RISK RATIO 3.35 (<5); HDL CHOLESTEROL 33.7 MG/DL (>40); LDL CHOLESTEROL 63.5 MG/DL (<100); NON-HDL-C 79.3 MG/DL; TOTAL PROTEIN 6.8 G/DL (5.7-8.2)
== END ==
LOC: M LABDRAWC 07:49
PROVIDERS: ATTEND Internal Medicine Cardiovascular Disease
DX: I10 Essential (primary) hypertension (principal); E78.2 Mixed hyperlipidemia; I44.4 Left anterior fascicular block

== ENCOUNTER → 2024-09-15 | Outpatient (REF) | payer MEDICARE, OTHER ==
[2024-09-15 13:16] LABS: HEMOGLOBIN A1c 5.3 % (4.0-6.0)
[2024-09-15 13:25] LABS: ALBUMIN 3.6 G/DL (3.2-5.2); ALKALINE PHOSPHATASE 74 U/L (40-129); ALT/SGPT 29 U/L (7.0-40); AST/SGOT 22 U/L (<34); BLOOD UREA NITROGEN 22 MG/DL (9-23); CALCIUM LEVEL 9.1 MG/DL (8.3-10.6); CARBON DIOXIDE LEVEL 28 MMOL/L (20-31); CHLORIDE LEVEL 107 MMOL/L (98-107); CHOLESTEROL LEVEL 111 MG/DL (<200); CHOLESTEROL RISK RATIO 2.87 (<5); GLOMERULAR FILTRATION RATE > 60.0 (>35); GLUCOSE, FASTING 95 MG/DL (74-106); HDL CHOLESTEROL 38.6 MG/DL (>40); LDL CHOLESTEROL 52.6 MG/DL (<100); NON-HDL-C 72.4 MG/DL; POTASSIUM SERUM 4.2 MMOL/L (3.5-5.1); SODIUM LEVEL 142 MMOL/L (136-145); TOTAL PROTEIN 7.2 G/DL (5.7-8.2); TRIGLYCERIDES LEVEL 99 MG/DL (<150)
[2024-09-15 13:59] LABS: HEPATITIS C VIRUS ABY INDEX 0.12 INDEX (<0.8)
== END ==
LOC: M SFHCCLAY 07:48
PROVIDERS: ATTEND Physician Assistant
DX: K21.9 Gastro-esophageal reflux disease without esophagitis (principal); I10 Essential (primary) hypertension; I25.10 Atherosclerotic heart disease of native coronary artery without angina pectoris

== ENCOUNTER → 2024-09-15 | Outpatient (REF) | payer MEDICARE, OTHER ==
[2024-09-15 12:53] LABS: BASO % 0.6 % (0.0-1.0); EOS # 0.2 10^3/uL (0.0-0.5); EOS % 2.6 % (0.0-3.0); HEMATOCRIT 43.6 % (42.0-52.0); HEMOGLOBIN 14.9 g/dl (13.5-17.5); LYMPH # 1.6 10^3/uL (1.5-5.0); LYMPH % 22.2 % (24.0-44.0); MEAN CORPUSCULAR HEMOGLOBIN 31.3 pg (27.0-33.0); MEAN CORPUSCULAR HGB CONC 34.2 g/dl (32.0-36.5); MEAN CORPUSCULAR VOLUME 91.6 fl (80.0-96.0); MONO # 0.7 10^3/uL (0.0-0.8); MONO % 10.2 % (2.0-8.0); NEUTROPHILS # 4.5 10^3/uL (1.5-8.5); NEUTROPHILS % 64.1 % (36.0-66.0); PLATELET COUNT, AUTOMATED 197 10^3/uL (150-450); RED BLOOD COUNT 4.76 10^6/uL (4.30-6.10)
[2024-09-15 13:22] LABS: ALBUMIN 3.6 G/DL (3.2-5.2); ALKALINE PHOSPHATASE 73 U/L (40-129); ALT/SGPT 28 U/L (7.0-40); AST/SGOT 22 U/L (<34); BLOOD UREA NITROGEN 22 MG/DL (9-23); CALCIUM LEVEL 8.9 MG/DL (8.3-10.6); CARBON DIOXIDE LEVEL 28 MMOL/L (20-31); CHLORIDE LEVEL 106 MMOL/L (98-107); CREATININE FOR GFR 0.76 MG/DL (0.70-1.30); GLOMERULAR FILTRATION RATE > 60.0 (>35); GLUCOSE, FASTING 93 MG/DL (74-106); IMMUNOGLOBULIN A 259.5 MG/DL (40-350); IMMUNOGLOBULIN G 1552 MG/DL (650-1600); IMMUNOGLOBULIN M 23.3 MG/DL (50-300); POTASSIUM SERUM 4.3 MMOL/L (3.5-5.1); PROSTATIC SPECIFIC AG MONITOR 0.04 NG/ML (< 4.00); SODIUM LEVEL 141 MMOL/L (136-145); TOTAL PROTEIN 7.1 G/DL (5.7-8.2)
[2024-09-16 08:07] LABS: T P ELECTROPHORESIS SO 7.2 g/dL (6.1-8.1)
[2024-09-16 14:37] LABS: FREE KAPPA LIGHT CHAINS SERUM 53.4 mg/L (3.3-19.4); FREE LAMBDA LIGHT CHAINS SERUM 14.6 mg/L (5.7-26.3); KAPPA/LAMBDA RATIO SERUM 3.66 (0.26-1.65)
[2024-09-19 07:47] LABS: ALBUMIN SPEP 3.8 g/dL (3.8-4.8); ALPHA-1-GLOBULINS SO 0.3 g/dL (0.2-0.3); ALPHA-2-GLOBULINS SO 0.7 g/dL (0.5-0.9); BETA 2 GLOBULIN 0.5 g/dL (0.2-0.5); BETA-GLOBULIN SO 0.5 g/dL (0.4-0.6); GAMMA GLOBULINS SO 1.4 g/dL (0.8-1.7); SPEP ABN PROTEIN BAND 1 0.7 g/dL (NONE DETECTED)
== END ==
LOC: M LABDRAWC 11:18
PROVIDERS: ATTEND Internal Medicine Hematology & Oncology
DX: G70.00 Myasthenia gravis without (acute) exacerbation (principal); Z79.899 Other long term (current) drug therapy; K21.9 Gastro-esophageal reflux disease without esophagitis; I10 Essential (primary) hypertension; I25.10 Atherosclerotic heart disease of native coronary artery without angina pectoris

== ENCOUNTER → 2024-11-01 | Outpatient (REF) | payer MEDICARE, OTHER ==
[~2024-11-01] MED LIST changes: +AMLO1TAB24 PO; +ATOR40TA75 PO; +BIMA01SOL OP; +BISO5TAB14 PO; +CLAR10CA3 PO; +CLOP75TA2 PO
[2024-11-01 13:17] LABS: APPEARANCE, URINE CLEAR (CLEAR); BACTERIA, URINE AUTO NEGATIVE (NEGATIVE); BILIRUBIN, URINE AUTO NEGATIVE (NEGATIVE); BLOOD, URINE BLOOD NEGATIVE (NEGATIVE); COLOR, URINE YELLOW (YELLOW); GLUCOSE, URINE (UA) AUTO NEGATIVE (NEGATIVE); KETONE, URINE AUTO NEGATIVE (NEGATIVE); LEUKOCYTE ESTERASE, URINE AUTO NEGATIVE (NEGATIVE); MUCUS, URINE SMALL (NEGATIVE); NITRITE, URINE AUTO NEGATIVE (NEGATIVE); PROTEIN, URINE AUTO NEGATIVE (NEGATIVE); RBC, URINE AUTO 0 /HPF (0-3); SPECIFIC GRAVITY URINE AUTO 1.018 (1.002-1.035); SQUAMOUS EPITHELIAL CELL UR AU 0 /HPF (0-6); UROBILINOGEN, URINE AUTO 0.2 mg/dL (0.0-2.0); WBC, URINE AUTO 3 /HPF (0-3)
== END ==
LOC: M SMT 12:42
PROVIDERS: ATTEND Physician Assistant
DX: N39.3 Stress incontinence (female) (male) (principal)

== ENCOUNTER → 2025-01-18 | Outpatient (REF) | payer MEDICARE, OTHER ==
[~2025-01-18] MED LIST changes: +ECOT81TA5 PO; +PANT20TA6 PO
[2025-01-18 17:03] LABS: PLATELET COUNT, AUTOMATED 217 10^3/uL (150-450)
[2025-01-18 17:21] LABS: ALT/SGPT 26.0 U/L (7.0-40); AST/SGOT 27.0 U/L (<34); CARBON DIOXIDE LEVEL 27.0 MMOL/L (20-31); CHLORIDE LEVEL 107.0 MMOL/L (98-107); CREATININE FOR GFR 0.92 MG/DL (0.70-1.30); GLOMERULAR FILTRATION RATE 81.5 (>35); POTASSIUM SERUM 4.9 MMOL/L (3.5-5.1); SODIUM LEVEL 144.0 MMOL/L (136-145)
[2025-01-18 17:25] LABS: INR 1.04
[2025-01-18 17:38] LABS: CALCIUM LEVEL 9.2 MG/DL (8.3-10.6)
== END ==
LOC: M SFHCCLAY 13:03
PROVIDERS: ATTEND Urology
DX: N39.3 Stress incontinence (female) (male) (principal)

== ENCOUNTER → 2025-01-18 | Outpatient (CLI) | payer MEDICARE, OTHER | LOC: M CLY 13:15 | PROVIDERS: ATTEND Urology | DX: N39.3 Stress incontinence (female) (male) (principal) ==

== ENCOUNTER → 2025-01-26 | Outpatient (REF) | payer MEDICARE, OTHER ==
[~2025-01-26] MED LIST changes: +MACR100C43 PO
[2025-01-27 12:58] LABS: APPEARANCE, URINE CLEAR (CLEAR); BACTERIA, URINE AUTO NEGATIVE (NEGATIVE); BILIRUBIN, URINE AUTO NEGATIVE (NEGATIVE); BLOOD, URINE BLOOD 2+ (NEGATIVE); GLUCOSE, URINE (UA) AUTO NEGATIVE (NEGATIVE); KETONE, URINE AUTO NEGATIVE (NEGATIVE); LEUKOCYTE ESTERASE, URINE AUTO NEGATIVE (NEGATIVE); MUCUS, URINE SMALL (NEGATIVE); NITRITE, URINE AUTO NEGATIVE (NEGATIVE); PROTEIN, URINE AUTO NEGATIVE (NEGATIVE); RBC, URINE AUTO 9 /HPF (0-3); SPECIFIC GRAVITY URINE AUTO 1.015 (1.002-1.035); SQUAMOUS EPITHELIAL CELL UR AU 0 /HPF (0-6); UROBILINOGEN, URINE AUTO 0.2 mg/dL (0.0-2.0); WBC, URINE AUTO 1 /HPF (0-3)
== END ==
LOC: M SFHCCLAY 15:24
PROVIDERS: ATTEND Physician Assistant
DX: Z01.818 Encounter for other preprocedural examination (principal)

== ENCOUNTER 2025-02-02 06:52 | Day surgery (SDC) | payer MEDICARE, OTHER ==
[~2025-02-02] VITALS: Ht 170.2 cm; Wt 61.1 kg
[~2025-02-02 06:52] MED LIST changes: -MACR100C43 PO
[2025-02-02] MEDS ORDERED: LIDOCAINE 2% 100 MG/5 ML SDV (FOR ANES.) As Ordered ONE (08:14)
[2025-02-02] MEDS: ceFAZolin SOD 2 GM IV ONCE IV ONE (08:27)
[2025-02-02] MEDS ORDERED: LR 1,000 ML IV SCH (08:35)
[2025-02-02] MEDS ORDERED: GLYCOPYRROLATE INJ 0.2 MG/ML 2 ML VIAL As Ordered ONE (08:37)
[2025-02-02] MEDS ORDERED: MACR100C43 PO (09:02)
[2025-02-02] MEDS ORDERED: MORPHINE 2 MG/ML 1 ML VIAL IV PRN (09:10)
[2025-02-02] MEDS ORDERED: HYDROMORPHONE HCL 0.5 MG/0.5 ML SYRINGE IV PRN (09:10)
[2025-02-02 12:10] VITALS: BP 148/60; TEMP 96.8; O2SAT 99
== END 2025-02-02 12:15 | disposition home or self-care (01) ==
LOC: M SDC 06:52
PROVIDERS: ATTEND Urology
DX: N39.3 Stress incontinence (female) (male) (principal); N52.9 Male erectile dysfunction, unspecified; Z90.79 Acquired absence of other genital organ(s); I25.10 Atherosclerotic heart disease of native coronary artery without angina pectoris; I10 Essential (primary) hypertension; E78.00 Pure hypercholesterolemia, unspecified; J45.20 Mild intermittent asthma, uncomplicated; Z79.899 Other long term (current) drug therapy; Z79.02 Long term (current) use of antithrombotics/antiplatelets; Z85.46 Personal history of malignant neoplasm of prostate; Z95.5 Presence of coronary angioplasty implant and graft; Z90.49 Acquired absence of other specified parts of digestive tract
CPT/HCPCS: 51715; A4215; A4649; J0690; J1596; J3010; L8606

== ENCOUNTER → 2025-04-07 | Outpatient (REF) | payer MEDICARE, OTHER ==
[~2025-04-07] MED LIST changes: +MACR100C43 PO; +OCUV1CAP4 PO
[2025-04-07 13:43] LABS: PLATELET COUNT, AUTOMATED 232 10^3/uL (150-450)
[2025-04-07 13:46] LABS: CALCIUM LEVEL 8.9 MG/DL (8.3-10.6); CARBON DIOXIDE LEVEL 28.0 MMOL/L (20-31); CHLORIDE LEVEL 107.0 MMOL/L (98-107); CREATININE FOR GFR 0.81 MG/DL (0.70-1.30); GLOMERULAR FILTRATION RATE 85.9 (>35); POTASSIUM SERUM 4.2 MMOL/L (3.5-5.1); SODIUM LEVEL 140.0 MMOL/L (136-145)
[2025-04-07 16:37] LABS: APPEARANCE, URINE CLEAR (CLEAR); BACTERIA, URINE AUTO NEGATIVE (NEGATIVE); BILIRUBIN, URINE AUTO NEGATIVE (NEGATIVE); BLOOD, URINE BLOOD NEGATIVE (NEGATIVE); GLUCOSE, URINE (UA) AUTO NEGATIVE (NEGATIVE); KETONE, URINE AUTO NEGATIVE (NEGATIVE); LEUKOCYTE ESTERASE, URINE AUTO NEGATIVE (NEGATIVE); MUCUS, URINE SMALL (NEGATIVE); NITRITE, URINE AUTO NEGATIVE (NEGATIVE); PROTEIN, URINE AUTO NEGATIVE (NEGATIVE); RBC, URINE AUTO 0 /HPF (0-3); SPECIFIC GRAVITY URINE AUTO 1.018 (1.002-1.035); SQUAMOUS EPITHELIAL CELL UR AU 0 /HPF (0-6); UROBILINOGEN, URINE AUTO 0.2 mg/dL (0.0-2.0); WBC, URINE AUTO 0 /HPF (0-3)
== END ==
LOC: M LABDRAWC 12:41 → M SMT 12:41
PROVIDERS: ATTEND Physician Assistant
DX: Z01.818 Encounter for other preprocedural examination (principal)

== ENCOUNTER 2025-04-17 09:18 | Day surgery (SDC) | payer MEDICARE, OTHER ==
[~2025-04-17] VITALS: Ht 170.2 cm; Wt 61.9 kg
[2025-04-17] MEDS ORDERED: LR 1,000 ML IV SCH (09:25)
[2025-04-17] MEDS: ceFAZolin SOD 2 GM IV ONCE IV ONE (10:38)
[2025-04-17] MEDS ORDERED: ONDANSETRON 4MG 2ML VIAL As Ordered ONE (10:42)
[2025-04-17] MEDS ORDERED: LIDOCAINE 2% 100 MG/5 ML SDV (FOR ANES.) As Ordered ONE (10:42)
[2025-04-17] MEDS ORDERED: ACETAMINOPHEN 1000MG/100ML IV BAG As Ordered ONE (10:42)
[2025-04-17] MEDS ORDERED: dexAMETHasone 4 MG/ML 1 ML VIAL As Ordered ONE (10:42)
[2025-04-17] MEDS ORDERED: GLYCOPYRROLATE INJ 0.2 MG/ML 2 ML VIAL As Ordered ONE (10:48)
[2025-04-17 12:40] VITALS: BP 156/79; TEMP 97; O2SAT 99
== END 2025-04-17 12:50 | disposition home or self-care (01) ==
LOC: M SDC 09:18
PROVIDERS: ATTEND Urology
DX: N39.3 Stress incontinence (female) (male) (principal); I25.10 Atherosclerotic heart disease of native coronary artery without angina pectoris; E78.5 Hyperlipidemia, unspecified; K21.9 Gastro-esophageal reflux disease without esophagitis; J45.909 Unspecified asthma, uncomplicated; Z85.46 Personal history of malignant neoplasm of prostate; J30.2 Other seasonal allergic rhinitis; Z79.899 Other long term (current) drug therapy; Z79.02 Long term (current) use of antithrombotics/antiplatelets; Z98.61 Coronary angioplasty status
CPT/HCPCS: 51715; A4215; J0131; J0688; J1100; J1596; J2405; J3010; L8606

== ENCOUNTER → 2025-05-25 | Outpatient (REF) | payer MEDICARE, OTHER ==
[2025-05-25 18:41] LABS: ALT/SGPT 26.0 U/L (7.0-40); AST/SGOT 27.0 U/L (<34); CALCIUM LEVEL 8.9 MG/DL (8.3-10.6); CARBON DIOXIDE LEVEL 29.0 MMOL/L (20-31); CHLORIDE LEVEL 104.0 MMOL/L (98-107); CHOLESTEROL LEVEL 112.0 MG/DL (<200); CHOLESTEROL RISK RATIO 2.55 (<5); CREATININE FOR GFR 0.79 MG/DL (0.70-1.30); GLOMERULAR FILTRATION RATE 86.5 (>35); LDL CHOLESTEROL 54.5 MG/DL (<100); MAGNESIUM LEVEL 2.0 MG/DL (1.8-2.4); NON-HDL-C 68.1 MG/DL; POTASSIUM SERUM 4.4 MMOL/L (3.5-5.1); SODIUM LEVEL 140.0 MMOL/L (136-145); TRIGLYCERIDES LEVEL 68.0 MG/DL (<150)
[2025-05-27 08:02] LABS: LDL DIRECT 55 mg/dL (<100)
== END ==
LOC: M LABDRAWC 17:25
PROVIDERS: ATTEND Internal Medicine Cardiovascular Disease
DX: I25.119 Atherosclerotic heart disease of native coronary artery with unspecified angina pectoris (principal); I44.4 Left anterior fascicular block; I35.1 Nonrheumatic aortic (valve) insufficiency; I10 Essential (primary) hypertension; E78.2 Mixed hyperlipidemia